=== PATIENT | female | born 1975 | race Caucasian/White ===

== ENCOUNTER → 2021-12-28 10:09 | Outpatient (BNVA) | payer MEDICAID, SELFPAY | PROVIDERS: Family Provider Family Medicine; PCP Nurse Practitioner; Visit Provider Internal Medicine | DX: R76.8 Other specified abnormal immunological findings in serum (principal); L50.8 Other urticaria; B19.20 Unspecified viral hepatitis C without hepatic coma | CPT/HCPCS: 80053; 81003; 82105; 86705; 86706; 87340; 87522; 87902 ==

== ENCOUNTER 2022-02-01 12:03 | Outpatient (CLI) | payer MEDICAID, SELFPAY ==
--- NOTE | 2022-02-01 12:00 | US_ITS ---
WS: [id number] ULTRASOUND ABDOMEN LIMITED CLINICAL INFORMATION: hep c COMPARISON: None. FINDINGS: Liver Size: Normal. Craniocaudal length: 14.1 cm. Echogenicity: Coarse Surface nodularity: None. Mass (size and location): None. Bile ducts Intrahepatic ducts: Normal. Common bile duct diameter: 0.5 cm. Gallbladder Cholelithiasis Gallstones: Present Gallbladder sludge: None. Gallbladder wall thickening: None. Pericholecystic fluid: None. Sonographic Graves sign: Absent. Pancreas Normal as visualized. Right kidney: Normal. Hydronephrosis: None. Size: 10.9 cm x 5.8 cm x 5.7 cm. Abdominal aorta and IVC Visualized portions are normal. Ascites: None. US/US liver [id number] IMPRESSION: 1. Liver is normal in size with diffuse fatty infiltration. 2. No intrahepatic biliary ductal dilatation. 3. Shadowing cholelithiasis. Largest gallstone measures approximately 2.0 x 1. 5 cm. No gallbladder wall thickening or pericholecystic fluid. 4. Normal common bile duct. 5. No hydronephrosis in RIGHT kidney.
== END 2022-02-01 12:04 | disposition home or self-care (01) ==
LOC: RAD 12:05
PROVIDERS: PCP Nurse Practitioner; Visit Provider Internal Medicine
DX: R76.8 Other specified abnormal immunological findings in serum (principal); K80.20 Calculus of gallbladder without cholecystitis without obstruction; K76.0 Fatty (change of) liver, not elsewhere classified
CPT/HCPCS: 76705